=== PATIENT | female | born 1995 | race Caucasian/White ===

== ENCOUNTER 2019-01-11 16:08 | Emergency (ER) | payer MEDICAID ==
[~2019-01-11] VITALS: Ht 170.2 cm; Wt 56.7 kg
[2019-01-11] MEDS ORDERED: NKM (16:21)
[2019-01-11 16:31] VITALS: BP 102/60
[2019-01-11] MEDS ORDERED: IBUPROFEN400 M1 PO (16:36)
[2019-01-11] MEDS ORDERED: CYCLOBENZAPRINE10 MG ORAL (16:36)
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
--- NOTE | 2019-01-11 17:10 | NUR ---
ER DISCHARGE NOTE: Patient is cleared to be discharged per ERMD, pt is aox4, on room air, with stable vital signs. pt was given dc and prescription instructions, pt was able to verbalize understanding, pt is able to ambulate with steady gait. pt took all belongings.
[2019-01-11 17:19] VITALS: BP 102/60
[2019-01-11 17:29] LABS: APPEARANCE,URINE SLIGHTLY CLOUDY; BILIRUBIN, URINE NEGATIVE (NEGATIVE); GLUCOSE, URINE (UA) NEGATIVE (NEGATIVE); KETONES,URINE 1+ (NEGATIVE); LEUKOCYTE ESTERASE ,URINE 1+ (NEGATIVE); NITRITE,URINE NEGATIVE (NEGATIVE); PH,URINE 6 (4.5-8.0); PROTEIN,URINE 1+ (NEGATIVE); UROBILINOGEN,URINE 4 MG/DL (0.0-1.0)
[2019-01-11 17:31] LABS: COLOR,URINE YELLOW
--- NOTE | 2019-01-11 17:38 | NUR ---
ED Nurse Note:pt.'s screan was positive, pt. was called and notified by me, and instructed to take tylenol instead her prescribed meds
== END 2019-01-11 17:32 | disposition home or self-care (01) ==
LOC: EMR 16:36
DX: S16.1XXA Strain of muscle, fascia and tendon at neck level, initial encounter (principal); V43.52XA Car driver injured in collision with other type car in traffic accident, initial encounter; Y92.410 Unspecified street and highway as the place of occurrence of the external cause; Z32.01 Encounter for pregnancy test, result positive; Z91.040 Latex allergy status
CPT/HCPCS: 81003; 81025; Z7502; 99283

== ENCOUNTER 2019-01-18 14:33 | Emergency (ER) | payer MEDICAID ==
[~2019-01-18] VITALS: Ht 172.7 cm; Wt 56.7 kg
[~2019-01-18 14:33] MED LIST: CYCLOBENZAPRINE10 MG ORAL; IBUPROFEN400 M1 PO; NKM
[2019-01-18 15:00] VITALS: BP 107/63
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
--- NOTE | 2019-01-18 15:17 | NUR ---
HAND-OFF: Report given to CHELE Stone. patient provided urine sample.
[2019-01-18 16:54] LABS: ANION GAP 8 mmol/L (5-15); BLOOD UREA NITROGEN 8 mg/dL (7-18); CARBON DIOXIDE 26 MMOL/L (21-32); CHLORIDE 106 MMOL/L (98-107); CREATININE 0.8 MG/DL (0.55-1.30); POTASSIUM 3.9 MMOL/L (3.5-5.1); SODIUM 139 MMOL/L (136-145)
[2019-01-18 16:55] LABS: HEMATOCRIT 36.4 % (37.0-47.0); HEMOGLOBIN 12.1 G/DL (12.0-16.0); INR 1.1 (0.9-1.1); MEAN CORPUSCULAR VOLUME 89 FL (80-99); PLATELET COUNT 130 K/UL (150-450); RED BLOOD COUNT 4.06 M/UL (4.20-5.40); RED CELL DISTRIBUTION WIDTH 11.1 % (11.6-14.8); WHITE BLOOD COUNT 3.3 K/UL (4.8-10.8)
[2019-01-18 16:58] LABS: ALANINE AMINOTRANSFERASE 17 U/L (12-78); ALBUMIN 3.8 G/DL (3.4-5.0); ALBUMIN/GLOBULIN RATIO 1.1 (1.0-2.7); ALKALINE PHOSPHATASE 48 U/L (46-116); ASPARTATE AMINO TRANSFERASE 15 U/L (15-37); BILIRUBIN,TOTAL 0.5 MG/DL (0.2-1.0)
--- NOTE | 2019-01-18 17:07 | Emergency Room Report ---
History of Present Illness General Chief Complaint: Vaginal Source: Patient Present Illness HPI Patient is a 24-year-old female who presents after increased pelvic pain. Patient reports having increased abdominal cramping associated with vaginal bleeding. She reportedly is approximately 6 weeks . She had increased pain to the left jaw and had prior history of meningioma resection. She denies any lightheadedness or dizziness. She reports of increased vaginal bleeding. She is G2, P0 Allergies: Coded Allergies: LATEX (Verified Allergy, Unknown, 01/11/19) Patient History Last Menstrual Period: possible Reviewed Nursing Documentation: PMH: Agreed; PSxH: Agreed Nursing Documentation-PMH Past Medical History: No History, Except For Review of Systems All Other Systems: negative except mentioned in HPI Physical Exam Vital Signs Date Time Temp Pulse Resp B/P (MAP) Pulse Ox O2 Delivery O2 Flow Rate FiO2 01/18/19 14:56 98.4 82 20 107/63 (78) 99 Room Air Sp02 EP Interpretation: reviewed, normal General Appearance: normal inspection, well appearing, no apparent distress, alert, GCS 15, non-toxic Head: atraumatic ENT: normal ENT inspection, hearing grossly normal, normal voice Neck: normal inspection, full range of motion, supple, no bony tend Respiratory: normal inspection, lungs clear, normal breath sounds, no respiratory distress, no retraction, no wheezing Cardiovascular #1: regular rate, rhythm, no edema Gastrointestinal: normal inspection, normal bowel sounds, non tender, soft, no guarding, no hernia Genitourinary: no CVA tenderness Musculoskeletal: normal inspection, back normal, normal range of motion Neurologic: normal inspection, alert, oriented x3, responsive, gold leaf layer III-XII nml as tested, speech normal Psychiatric: normal inspection, judgement/insight normal, mood/affect normal Medical Decision Making Diagnostic Impression: Primary Impression: Vaginal bleeding Additional Impression: Complete ER Course Patient presented for vaginal bleeding. Differential diagnosis included wasn't limited to ectopic , menorrhagia, coagulopathy, incomplete , threatened among others. Because of complexity of patient's case laboratory tests and imaging studies were ordered. Patient was noted to have previous diagnosis of . She is Rh+. She was noted to have past which she reports being some tissue. Pelvic ultrasound showed no retained products or complex ovarian cyst consistent with ectopic see radiology report for full details. She does not have any severe pain. Patient appears to be stable for close outpatient follow-up and repeat quant and likely has a completed miscarriage. Patient was given ectopic precautions. Patient was advised to recheck with [facility] in 2 days and to return if worse. Labs Test 01/18/19 16:10 White Blood Count 3.3 K/UL (4.8-10.8) Red Blood Count 4.06 M/UL (4.20-5.40) Hemoglobin 12.1 G/DL (12.0-16.0) Hematocrit 36.4 % (37.0-47.0) Mean Corpuscular Volume 89 FL (80-99) Mean Corpuscular Hemoglobin 29.8 PG (27.0-31.0) Mean Corpuscular Hemoglobin Concent 33.3 G/DL (32.0-36.0) Red Cell Distribution Width 11.1 % (11.6-14.8) Platelet Count 130 K/UL (150-450) Mean Platelet Volume 9.4 FL (6.5-10.1) Neutrophils (%) (Auto) % (45.0-75.0) Lymphocytes (%) (Auto) % (20.0-45.0) Monocytes (%) (Auto) % (1.0-10.0) Eosinophils (%) (Auto) % (0.0-3.0) Basophils (%) (Auto) % (0.0-2.0) Differential Total Cells Counted 100 Neutrophils % (Manual) 50 % (45-75) Lymphocytes % (Manual) 40 % (20-45) Monocytes % (Manual) 7 % (1-10) Eosinophils % (Manual) 2 % (0-3) Basophils % (Manual) 1 % (0-2) Band Neutrophils 0 % (0-8) Platelet Estimate Decreased Platelet Morphology Normal Red Blood Cell Morphology Normal Prothrombin Time 11.4 SEC (9.30-11.50) Prothromb Time International Ratio 1.1 (0.9-1.1) Activated Partial Thromboplast Time 28 SEC (23-33) Sodium Level 139 MMOL/L (136-145) Potassium Level 3.9 MMOL/L (3.5-5.1) Chloride Level 106 MMOL/L (98-107) Carbon Dioxide Level 26 MMOL/L (21-32) Anion Gap 8 mmol/L (5-15) Blood Urea Nitrogen 8 mg/dL (7-18) Creatinine 0.8 MG/DL (0.55-1.30) Estimat Glomerular Filtration Rate > 60 mL/min (>60) Glucose Level 88 MG/DL (74-106) Calcium Level 9.0 MG/DL (8.5-10.1) Total Bilirubin 0.5 MG/DL (0.2-1.0) Aspartate Amino Transf (AST/SGOT) 15 U/L (15-37) Alanine Aminotransferase (ALT/SGPT) 17 U/L (12-78) Alkaline Phosphatase 48 U/L (46-116) Total Protein 7.4 G/DL (6.4-8.2) Albumin 3.8 G/DL (3.4-5.0) Globulin 3.6 g/dL Albumin/Globulin Ratio 1.1 (1.0-2.7) Lipase 162 U/L (73-393) Human Chorionic Gonadotropin, Quant 1426 mIU/mL (1-6) Last Vital Signs Date Time Temp Pulse Resp B/P (MAP) Pulse Ox O2 Delivery O2 Flow Rate FiO2 01/18/19 14:56 98.4 82 20 107/63 (78) 99 Room Air Status: improved Disposition: HOME, SELF-CARE Condition: Stable Referrals: NOT CHOSEN [facility]/,REFERRING (PCP) Patric Butts MD Jan 18, 2019 17:07
--- NOTE | 2019-01-18 19:15 | NUR ---
ER DISCHARGE NOTE: Patient is cleared to be discharged per ERMD, pt is aox4, on room air, with stable vital signs. pt was given dc and prescription instructions, pt was able to verbalize understanding, pt id band and iv site removed without complications. pt is able to ambulate with steady gait. pt took all belongings. pt improved understanding of tx.
--- NOTE | 2019-01-18 19:18 | Diagnostic Imaging Report ---
EXAM: US Pelvis Transabdominal, Complete CLINICAL HISTORY: PAIN TECHNIQUE: Real-time complete transabdominal pelvic ultrasound with image documentation. COMPARISON: No relevant prior studies available. FINDINGS: Uterus cervix: Normal in size, 7.9 x 5.5 x 4 cm. Normal endometrial stripe thickness at 5 mm. No myometrial mass. Right ovary: Normal in size, 2.7 x 3.4 x 1.1 cm. No mass. Normal blood flow. Left ovary: Normal in size, 4 x 3.9 x 1.5 cm. No mass. Normal blood flow. Free fluid: Trace fluid in the cul-de-sac IMPRESSION: Unremarkable pelvic ultrasound. No IUP (patient reports having had a positive test). If this is the case, cannot exclude ectopic , but no suspicious adnexal mass. Recommend clinical correlation and follow-up.
== END 2019-01-18 19:15 | disposition home or self-care (01) ==
LOC: EMR 15:22
DX: O03.9 Complete or unspecified spontaneous abortion without complication (principal); Z91.040 Latex allergy status
CPT/HCPCS: 36415; 76830; 76856; 80053; 83690; 84702; 85007; 85025; 85610; 85730; 86850; 86900; 86901; J7040; Z7502; 99284